=== PATIENT | male | born 1975 | race Caucasian/White ===

== ENCOUNTER 2020-12-01 00:13 | Inpatient (IN) ==
[2020-12-01 01:07] LABS: Basophils % 0.5 %; Eosinophils % 0.2 %; Hematocrit 37.8 % (37.5-50.1); Hemoglobin 12.8 g/dL (12.9-16.9); Immature Granulocytes % 0.3 % (0-4); Lymphocytes % 16.7 %; Mean Corpuscular HGB Conc 33.9 g/dL (31.6-35.5); Mean Corpuscular Hemoglobin 32.4 pg (28.0-33.3); Mean Corpuscular Volume 95.7 fL (83.0-100.0); Monocytes # 0.4 K/mcL (0.0-1.3); Monocytes % 7.3 %; Neutrophils # 4.5 K/mcL (1.6-8.9); Platelet Count 257 K/mcL (140-400); Red Blood Count 3.95 M/mcL (4.19-5.50); Red Cell Distribution Width 13.8 % (11.5-14.5); White Blood Count 6.1 K/mcL (4.3-11.1)
[2020-12-01 01:09] LABS: ABG Base Excess 3 mEq/L (-2 to 3); ABG HCO3 25 mEq/L (21-27); ABG Oxygen Saturation 96 % (95-98); ABG PCO2 30 mmHg (35-45); ABG PH 7.52 pH Units (7.32-7.45); ABG PO2 72 mmHg (85-104); ABG TCO2 26 mEq/L (20-26)
[2020-12-01 01:17] LABS: INR 1.4; Prothrombin Time 15.7 Seconds (9.4-12.1)
[2020-12-01 01:19] LABS: Activated Partial Thrombo Time 32.8 Seconds (26.0-36.0)
[2020-12-01 01:21] LABS: Bilirubin,Urine Negative (Negative); Blood,Urine Negative (Negative); Clarity,Urine Clear (Clear); Color,Urine Yellow (Yellow); Glucose,Urine (UA) Normal (Normal); Ketones,Urine Negative (Negative); Leukocyte Esterase,Urine Negative (Negative); Nitrite,Urine Negative (Negative); Protein,Urine Negative (Neg-Trace); Specific Gravity,Urine 1.025 (1.010-1.025); Urobilinogen,Urine Normal (Normal)
[2020-12-01 01:41] LABS: Amphetamine Screen,Urine Positive ng/mL (Cutoff=1000); Barbiturate Screen,Urine Negative ng/mL (Cutoff=200); Benzodiazepines Screen,Urine Negative ng/mL (Cutoff=200); Cannabinoid Screen,Urine Positive ng/mL (Cutoff = 50); Cocaine Screen,Urine Negative ng/mL (Cutoff= 300); Opiate Screen,Urine Negative ng/mL (Cutoff=300); Phencyclidine Screen,Urine Negative ng/mL (Cutoff=25)
[2020-12-01] MEDS ORDERED: 0.9 % Sodium Chloride 1,000 ML IVC ONE (01:44)
[2020-12-01] MEDS ORDERED: Isovue-370 500 ML BOTTLE IVP ONE (01:44)
[2020-12-01 02:19] LABS: Alanine Aminotransferase 14 Units/L (7-52); Albumin 3.9 g/dL (3.5-5.7); Albumin/Globulin Ratio 1.4 (1.1-2.2); Alkaline Phosphatase 80 Units/L (34-104); Aspartate Amino Transferase 22 Units/L (13-39); BUN/Creatinine Ratio 23 (6-26); Bilirubin,Direct 0.1 mg/dL (0.0-0.2); Bilirubin,Indirect 0.6 mg/dL (0.0-1.0); Bilirubin,Total 0.7 mg/dL (0.3-1.0); Blood Urea Nitrogen 23 mg/dL (6-20); Calcium 8.7 mg/dL (8.6-10.3); Carbon Dioxide 28 mEq/L (23-29); Chloride 97 mEq/L (98-107); Globulin 2.8 g/dL (2.4-3.5); Glucose 101 mg/dL (70-105); Osmolality,Calculated 286 (280-300); Potassium 3.3 mEq/L (3.5-5.1); Sodium 136 mEq/L (136-145); Total Protein 6.7 g/dL (6.4-8.9); eGFR For African Americans > 60 (> 60); eGFR For Non-African Americans > 60 (> 60)
[2020-12-01 02:22] LABS: Ethanol < 10 mg/dL (Less than 10)
[2020-12-01 02:44] LABS: Troponin I 0.13 ng/mL (< 0.04)
[2020-12-01] MEDS ORDERED: Potassium Chloride Elixir 20 MEQ/15 ML UDC PO ONE (03:01)
[2020-12-01] MEDS ORDERED: Aspirin 325 MG TABLET PO ONE (05:29)
[2020-12-01] MEDS ORDERED: *HR* Enoxaparin 60 MG/0.6 ML SYRINGE SQ STA ×2 (05:32→19:34)
[2020-12-01] MEDS ORDERED: Nicotine 21 MG PATCH.TD24 TD SCH (09:00)
[2020-12-01] MEDS ORDERED: Furosemide 20 MG/2 ML VIAL IVP SCH ×3 (09:30→17:00)
[2020-12-01] MEDS ORDERED: Benzonatate 100 MG CAPSULE PO PRN (09:36)
[2020-12-01] MEDS ORDERED: Ondansetron 4 MG/2 ML VIAL IVP PRN ×2 (09:36→19:34)
[2020-12-01] MEDS ORDERED: Naloxone 0.4 MG/ML INJ IVP PRN ×4 (09:36→19:34)
[2020-12-01] MEDS: Levalbuterol 1 PUFF INHALER IH SCH ×3 (09:58→22:31)
[2020-12-01] MEDS ORDERED: Levalbuterol Neb 1.25 MG/3 ML IH SCH (10:00)
[2020-12-01] MEDS ORDERED: Metoprolol XL (24 HR) Succ 25 MG TAB.ER.24H PO SCH (11:00)
[2020-12-01] MEDS ORDERED: *HR* LORazepam 2 MG/ML VIAL IVP ONE (12:36)
[2020-12-01] MEDS ORDERED: Acetaminophen 325 MG TABLET PO PRN ×2 (17:00→19:34)
[2020-12-01] MEDS ORDERED: Aspirin 325 MG TABLET PO SCH (19:34)
[2020-12-01] MEDS: Aspirin 325 MG TABLET PO ONE ×2 (20:08→21:15)
[2020-12-01] MEDS: Benzonatate 100 MG CAPSULE PO PRN (21:16)
[2020-12-01] MEDS: Metoprolol XL (24 HR) Succ 25 MG TAB.ER.24H PO SCH (21:16)
[2020-12-01] MEDS: 0.9 % Sodium Chloride 1,000 ML IVC SCH (21:34)
[2020-12-02 01:41] LABS: Basophils % 0.3 %; Hematocrit 40.5 % (37.5-50.1); Hemoglobin 13.2 g/dL (12.9-16.9); Lymphocytes # 0.7 K/mcL (0.6-4.6); Lymphocytes % 11.3 %; Mean Corpuscular HGB Conc 32.6 g/dL (31.6-35.5); Mean Corpuscular Volume 98.1 fL (83.0-100.0); Mean Platelet Volume 11.1 fL (9.4-12.4); Monocytes # 0.2 K/mcL (0.0-1.3); Monocytes % 3.2 %; Neutrophils # 5.1 K/mcL (1.6-8.9); Platelet Count 259 K/mcL (140-400); Red Blood Count 4.13 M/mcL (4.19-5.50); Red Cell Distribution Width 14.1 % (11.5-14.5); Segmented Neutrophils % 84.2 %
[2020-12-02 01:54] LABS: BUN/Creatinine Ratio 21 (6-26); Blood Urea Nitrogen 20 mg/dL (6-20); Calcium 8.5 mg/dL (8.6-10.3); Carbon Dioxide 29 mEq/L (23-29); Chloride 100 mEq/L (98-107); Glucose 135 mg/dL (70-105); Osmolality,Calculated 289 (280-300); Sodium 137 mEq/L (136-145); eGFR For African Americans > 60 (> 60); eGFR For Non-African Americans > 60 (> 60)
[2020-12-02] MEDS: Levalbuterol 1 PUFF INHALER IH SCH ×4 (05:37→22:31)
[2020-12-02] MEDS: *HR* Enoxaparin 40 MG/0.4 ML SYRINGE SQ SCH (05:53)
[2020-12-02] MEDS ORDERED: *HR* Enoxaparin 40 MG/0.4 ML SYRINGE SQ SCH (06:00)
[2020-12-02] MEDS: 0.9 % Sodium Chloride 1,000 ML IVC SCH (08:53)
[2020-12-02] MEDS: Nicotine 21 MG PATCH.TD24 TD SCH (08:53)
[2020-12-02] MEDS: Furosemide 20 MG/2 ML VIAL IVP SCH ×2 (08:54→17:50)
[2020-12-02] MEDS: Metoprolol XL (24 HR) Succ 25 MG TAB.ER.24H PO SCH ×2 (08:55→20:09)
[2020-12-02] MEDS: Aspirin 81 MG TAB.CHEW PO SCH (08:55)
[2020-12-02] MEDS ORDERED: Aspirin 81 MG TAB.CHEW PO SCH (09:00)
[2020-12-02] MEDS ORDERED: *HR* Metoprolol 5 MG/5 ML VIAL IVP PRN (11:51)
[2020-12-02] MEDS: QUEtiapine Fumarate 25 MG TABLET PO SCH ×2 (15:16→21:55)
[2020-12-02] MEDS ORDERED: Perflutren Lipid Microsphere 1.3 ML in 0.9 % Sodium Chloride 8.7 ML IVP PRN ×2 (16:28→16:30)
[2020-12-02] MEDS: Benzonatate 100 MG CAPSULE PO PRN (20:09)
[2020-12-03] MEDS ORDERED: Haloperidol Lactate 5 MG/ML VIAL IVP ONE (03:19)
[2020-12-03] MEDS: Levalbuterol 1 PUFF INHALER IH SCH ×4 (03:47→21:59)
[2020-12-03] MEDS: *HR* Enoxaparin 40 MG/0.4 ML SYRINGE SQ SCH (06:02)
[2020-12-03 08:52] LABS: Basophils % 0.1 %; Eosinophils % 0.2 %; Hematocrit 39.7 % (37.5-50.1); Hemoglobin 13.3 g/dL (12.9-16.9); Immature Granulocytes % 0.5 % (0-4); Lymphocytes # 2.1 K/mcL (0.6-4.6); Lymphocytes % 18.5 %; Mean Corpuscular HGB Conc 33.5 g/dL (31.6-35.5); Mean Corpuscular Volume 95.4 fL (83.0-100.0); Mean Platelet Volume 11.7 fL (9.4-12.4); Monocytes # 0.4 K/mcL (0.0-1.3); Monocytes % 3.4 %; Neutrophils # 8.6 K/mcL (1.6-8.9); Platelet Count 282 K/mcL (140-400); Red Blood Count 4.16 M/mcL (4.19-5.50); Red Cell Distribution Width 13.8 % (11.5-14.5); Segmented Neutrophils % 77.3 %; White Blood Count 11.1 K/mcL (4.3-11.1)
[2020-12-03] MEDS: Nicotine 21 MG PATCH.TD24 TD SCH (10:09)
[2020-12-03] MEDS: Metoprolol XL (24 HR) Succ 25 MG TAB.ER.24H PO SCH ×2 (10:09→21:41)
[2020-12-03] MEDS: Aspirin 81 MG TAB.CHEW PO SCH (10:10)
[2020-12-03] MEDS: Furosemide 20 MG/2 ML VIAL IVP SCH ×2 (10:10→17:51)
[2020-12-03] MEDS: QUEtiapine Fumarate 25 MG TABLET PO SCH ×2 (10:11→21:42)
[2020-12-03] MEDS ORDERED: QUEtiapine Fumarate 25 MG TABLET PO SCH (11:00)
[2020-12-03] MEDS: Benzonatate 100 MG CAPSULE PO PRN (21:41)
[2020-12-04 02:25] VITALS: O2SAT 99
[2020-12-04] MEDS: Levalbuterol 1 PUFF INHALER IH SCH ×2 (04:39→12:40)
[2020-12-04] MEDS: *HR* Enoxaparin 40 MG/0.4 ML SYRINGE SQ SCH (06:10)
[2020-12-04 07:10] LABS: Basophils % 0.1 %; Eosinophils % 0.1 %; Hemoglobin 13.6 g/dL (12.9-16.9); Immature Granulocytes % 0.5 % (0-4); Lymphocytes # 1.8 K/mcL (0.6-4.6); Lymphocytes % 19.1 %; Mean Corpuscular Hemoglobin 32.4 pg (28.0-33.3); Mean Corpuscular Volume 95.2 fL (83.0-100.0); Mean Platelet Volume 11.5 fL (9.4-12.4); Monocytes # 0.4 K/mcL (0.0-1.3); Monocytes % 4.1 %; Neutrophils # 7.3 K/mcL (1.6-8.9); Platelet Count 292 K/mcL (140-400); Red Cell Distribution Width 13.9 % (11.5-14.5); Segmented Neutrophils % 76.1 %; White Blood Count 9.6 K/mcL (4.3-11.1)
[2020-12-04 07:31] LABS: BUN/Creatinine Ratio 38 (6-26); Blood Urea Nitrogen 31 mg/dL (6-20); Calcium 8.9 mg/dL (8.6-10.3); Carbon Dioxide 27 mEq/L (23-29); Chloride 99 mEq/L (98-107); Glucose 105 mg/dL (70-105); Osmolality,Calculated 289 (280-300); Potassium 3.8 mEq/L (3.5-5.1); Sodium 136 mEq/L (136-145); eGFR For African Americans > 60 (> 60); eGFR For Non-African Americans > 60 (> 60)
[2020-12-04 07:47] VITALS: BP 124/87; PULSE 92; TEMP 98.3
[2020-12-04] MEDS: Nicotine 21 MG PATCH.TD24 TD SCH (09:56)
[2020-12-04] MEDS: Aspirin 81 MG TAB.CHEW PO SCH (09:58)
[2020-12-04] MEDS: QUEtiapine Fumarate 25 MG TABLET PO SCH (09:58)
[2020-12-04] MEDS: Metoprolol XL (24 HR) Succ 25 MG TAB.ER.24H PO SCH (09:58)
[2020-12-04] MEDS: Furosemide 20 MG/2 ML VIAL IVP SCH (09:59)
[2020-12-04 12:41] VITALS: RESP 18
== END 2020-12-04 14:19 | disposition other institution (70) | DRG 137 ==
LOC: EMEROOPIK 00:13 → INPPIK 00:13
PROVIDERS: ADMIT Internal Medicine; ATTEND Internal Medicine